=== PATIENT | female | born 1945 | race Caucasian/White ===

== ENCOUNTER 2018-03-20 01:57 | Inpatient (IN) | payer OTHER ==
[~2018-03-20] VITALS: Ht 162.6 cm; Wt 79.8 kg
[2018-03-20] VITALS (8 sets, daily range): BP systolic 86–142; BP diastolic 28–72
--- NOTE | ~2018-03-20 | PATH ---
[facility] [place] [address] PATHOLOGY RPT PROCEDURE Name: SHARLA TITUS Room #: 351-P [facility] IN M.R.#: [id number] Admission: 03/20/18 Date of : 41 Discharge: 03/31/18 Report #: [id number] Path Case #: [id number] [facility] Accession Number: [id number] . 01 Material submitted: . PART A: SACRAL WOUND TISSUE PART B: SACRAL BONE . 01 Clinician provided ICD-10: S31.000A . 01 Clinical history: . Sacral wound. . 02 Diagnosis: A. Sacral wound tissue, incision and drainage: - Marked acute inflammation associated with fibrinoid degeneration, consistent with wound tissue. . B. Bone, sacral bone, incision and drainage/debridement: - Fragments of bone surrounded by marked acute inflammation, consistent with wound tissue. - Reactive and remodeled osseous tissue. - Dense fibrous tissue with marked acute inflammation. (IUV:minerva; 03/27/2018) QMS/03/27/2018 . 02 Electronically signed: . Becky Blankenship MD, Pathologist NPI- [id number] . 01 Gross description: . A. Received in formalin labeled "Sharla Titus, sacral wound tissue" are two portions of yellow-preston irregular soft tissue which measure 4.3 x 2.2 x 0.6 cm and 10.3 x 7.7 x 3.5 cm. The larger portion has a crescent-shaped portion of skin on one aspect, which displays an ulcerated preston-white irregular border. The deep soft tissue is preston-finch and hemorrhagic. Pediatric Genetic Counselor sections are submitted in cassette A1. . B. Received in formalin labeled "Sharla Titus, sacral bone" is a 4.5 x 3.8 x 0.5 cm aggregate of preston-white bone and membranous soft tissue. Pediatric Genetic Counselor sections of the specimen are submitted in cassette B1 following decalcification. [place]/2018[place] SYC/SYC . 02 Pathologist provided ICD-10: S31.000A [place] [id number] PATHOLOGY RPT PROCEDURE Name: SHARLA TITUS Room #: 351-P [facility] IN M.R.#: [id number] Admission: 03/20/18 Date of : 41 Discharge: 03/31/18 Report #: [id number] Path Case #: [id number] . 02 [facility] . [id number], [id number], [id number] Specimen Comment: A courtesy copy of this report has been sent to Specimen Comment: [phone], , , . Specimen Comment: Report sent to ,DR WEBB,DR ALMANZA,DR DAVIS Performed at: [address] [facility] [address], [place], [place] [id number] MD Ruben Houser MD Phone: [phone] Performed at: [address] [facility] [address] [id number] MD Becky Blankenship MD Phone: [phone]
--- NOTE | ~2018-03-20 | EKG ---
[address] [address] ELECTROCARDIOGRAM REPORT Name: JOE TITUS Room #: 351-P ADM IN M.R.#: [id number] Admission: 03/20/18 Attend Phys: Jacob Victoria MD Discharge: Date of : 41 Report #: [id number] THIS REPORT FOR: //name// [facility] ED Test Date: 2018-03-20 Test Time: 02:50:49 Pat Name: JOE TITUS Department: Room: 351 Gender: F Diesel Power Mechanic: paula : 1945 Requested By: Gasper Guzman Order Number: [id number] MD: Davin Naik Measurements Intervals [place] Rate: 106 P: 39 OR: 105 QRS: 51 QRSD: 82 T: 67 QT: 355 QTc: 472 Interpretive Statements Sinus tachycardia Multiple ventricular premature complexes Nonspecific ST segment abnormality No previous ECG available for comparison Electronically Signed On 03-20-2018 8:49:23 CDT by Davin Naik [email or web address] <ELECTRONICALLY SIGNED> By: Davin Naik MD, FACC 03/20/18 0849 0250 0250 Davin Naik MD, FACC /EPI
--- NOTE | ~2018-03-20 | HC ---
[facility] [place] [address] [place] [address] CONSULTATION Name: JOE TITUS Room #: 351-P [facility] IN .R.#: [id number] Admission: 03/20/18 Attend Phys: Jacob Victoria MD Discharge: Date of : 41 Report #: [id number] THIS REPORT FOR: //name// CC: Jacob Gauthier DATE OF SERVICE: 03/20/2018 CHIEF COMPLAINT: Stage 4 sacral pressure ulceration. HISTORY OF PRESENT ILLNESS: This is a 73-year-old white female patient, who is admitted with fever. She has a history of a sacral pressure ulceration. Her previous treatment regimen is unknown. She is not able to provide any information about herself. PAST MEDICAL HISTORY: Positive respiratory failure, requiring tracheostomy. She has a PEG tube. SOCIAL HISTORY: Negative for alcohol or tobacco use. She is currently living in a local assisted. REVIEW OF SYSTEMS: Unobtainable due to the patient's inability to communicate and being nonverbal. FAMILY HISTORY: Unknown. MEDICATIONS: Include citalopram, Pepcid, Glucerna, hydrochlorothiazide, Atrovent, Ativan, Lopressor and Flonase. PHYSICAL EXAMINATION: VITAL SIGNS: At this time, pulse 119, respiratory rate 23, blood pressure 124/45 and temperature 101.5. GENERAL: This is a chronically ill-appearing female patient, who appears to be in no distress. She does make eye contact, but makes no attempt to communicate. HEENT: Head normocephalic. Nose and throat are clear. NECK: Demonstrates tracheostomy in place. LUNGS: Diminished. HEART: Regular rhythm. ABDOMEN: Soft. PEG tube is in place. GENITOURINARY: Sacral region demonstrates a stage 4 pressure ulceration with moderate eschar and exposed loose bone in the base. EXTREMITIES: Lower extremities are without contracture. No evidence of any obvious ulcerations elsewhere on her extremities. NEUROLOGIC: The patient appears to have symmetrical spontaneous movement. She does not readily follow command. [address] [address] CONSULTATION Name: JOE TITUS Room #: 351-P [facility] IN M.R.#: [id number] Admission: 03/20/18 Attend Phys: Jacob Victoria MD Discharge: Date of : 43 Report #: [id number] LABORATORY DATA: Includes sodium 133, potassium 3.4, chloride 99, CO2 of 30, BUN 25, creatinine 0.6 and glucose 210. Total bilirubin 0.5, calcium 9.1, alkaline phosphatase 112, SGPT 29, total protein 7.1, albumin 2.1. White blood cell count 19.2, hemoglobin of 9.5, hematocrit of 29.8 and platelet count 343,000. Urinalysis with many white blood cells, red blood cells and bacteria. CLINICAL IMPRESSION: 1. Stage 4 sacral pressure ulceration with clinical evidence of osteomyelitis. 2. Respiratory failure, requiring tracheostomy. 3. Moderate protein-calorie malnutrition. The patient has a PEG tube in place. RECOMMENDATIONS: At this point in time, the patient is not able to answer any specific questions. There have been attempts made to contact family, with no success. She will require a surgical debridement including bony debridement of the sacral region. She would likely benefit from negative pressure wound therapy following debridement. She is having significant diarrhea that is contaminating the wound. She has a PEG tube in place, which I think will be beneficial for maintaining or improving her nutrition, but I think she would also greatly benefit from a diverting colostomy. She will need low air loss mattress Prevalon boots to the lower extremities for pressure prophylaxis. Recommend every 2 hour turning and repositioning. Continue current medications. I appreciate being asked to see her in consultation. <ELECTRONICALLY SIGNED> By: Vlad Bellamy MD 03/22/18 0750 2056 1416 Vlad Bellamy MD /nt
--- NOTE | ~2018-03-20 | O ---
[facility] [address] [place] [address] OPERATIVE REPORT Name: JOE TITUS Room #: 351-P [facility] IN M.R.#: [id number] Admission: 03/20/18 Attend Phys: Jacob Victoria MD Discharge: Date of : 43 Report #: [id number] THIS REPORT FOR: //name// CC: Jacob Gauthier MD DATE OF SERVICE: 03/24/2018 SURGEON: Bruno Castelan MD FURNITURE FINISHER: RUI Jenkins PREOPERATIVE DIAGNOSES: 1. Large, unstageable sacrococcygeal decubitus ulcer. 2. Malnutrition. 3. Hypertension. 4. Respiratory failure with a tracheostomy in place. 5. Depression/Anxiety. POSTOPERATIVE DIAGNOSES: 1. Large, stage 4 sacrococcygeal decubitus ulcer. 2. Malnutrition. 3. Hypertension. 4. Respiratory failure with a tracheostomy in place. 5. Depression/Anxiety. PROCEDURE: 1. Diverting loop colostomy. 2. Excisional and ultrasonic debridement of stage 4 sacrococcygeal decubitus ulcer including skin, subcutaneous tissue, muscle and bone (starting area 35 cm2; ending area 204 cm2). ANESTHESIA: General endotracheal anesthesia and local anesthetic. ESTIMATED BLOOD LOSS: 50 mL. SPECIMEN: Sacral tissue (skin, subcutaneous tissue, and muscle/fascia), sacral bone. COMPLICATIONS: None appreciated. INDICATIONS FOR PROCEDURE: This is a 73-year-old female patient from [facility] who was seen in the [place] with a sacral decubitus ulcer and fever. The patient is nonverbal due to respiratory failure [facility] [address] [place] [address] OPERATIVE REPORT Name: JOE TITUS Room #: 351-P ADM IN M.R.#: [id number] Admission: 03/20/18 Attend Phys: Jacob Victoria MD Discharge: Date of : 43 Report #: [id number] with a tracheostomy in place. She has been unable to provide information. She had a temperature of 101 degrees with a large sacral wound that has shown worsening. She had significant leukocytosis and a urinary tract infection on urinalysis. On exam, she had obvious necrotic tissue with malodorous drainage from the decubitus ulcer. She already has a PEG tube in place. Despite this, she is malnourished. She presents now for colostomy to divert the fecal stream and optimize the healing environment as well as excisional debridement of her sacrococcygeal decubitus ulcer. OPERATIVE FINDINGS: The dimensions of the wound were 7 cm long x 5 cm wide initially. Due to the extensive undermining and after adequate excision of tissue down to healthy, viable tissue, the wound dimensions were 12 cm long x 17 cm wide. There was obvious bony involvement and cultures were taken from the more superficial tissue as well as from the bone marrow that appeared to represent osteomyelitis and make this is a stage 4 sacrococcygeal decubitus ulcer. The patient's colon was felt to be redundant. The only colon that was able to be pulled up through the opening in the abdomen was felt to represent sigmoid colon, as no greater omentum was attached to the colon. A loop-type colostomy was created and both lumens were palpably patent beyond the fascial level. The blood supply to the colon was good with viability after creation of the stoma. DESCRIPTION OF PROCEDURE IN DETAIL: After the risks, benefits and expectations of the operation were discussed with the patient's durable power of civil rights attorney, informed consent was obtained. The patient was identified in the preoperative holding area. She has been receiving scheduled IV antibiotics. She was taken to the operating room and she was placed in the supine position. The patient was then given IV sedation and the ventilator was connected to her indwelling tracheostomy. She was then placed on the operating table in the left lateral decubitus position with the right side up. The patient's back and sacral area were prepped and draped in the standard sterile fashion. A time-out was performed to identify the correct patient and procedure. The planned incision was drawn out after digitally examining the wound. There was obvious bony protrusion with jagged edges present and the wound undermined significantly laterally on each side. After marking out the area to be excised, local anesthetic was infiltrated into the skin and subcutaneous tissue. A sharp #10 blade scalpel was used to make an incision through the skin and subcutaneous tissue. Electrocautery was used to dissect through the subcutaneous tissue down to healthy, viable tissue that was slightly bleeding/oozing with no acute hemorrhage. Bleeding points were made hemostatic with electrocautery while doing so. The excised necrotic tissue was then removed to be sent for specimen. Cultures were taken from the superficial tissue. The outer table of the bone and marrow were then debrided with the rongeur. The outside of the bone marrow [address] [address] OPERATIVE REPORT Name: TACHOJOE Room #: 351-P [facility] IN M.R.#: [id number] Admission: 03/20/18 Attend Phys: Jacob Victoria MD Discharge: Date of : 41 Report #: [id number] appeared to be infected and cultures were taken from the bone to be sent for aerobes, anaerobes and fungus. The outer table of bone and marrow was then smoothed out with a rasp to help eliminate bony prominences that could cause further development of pressure ulcers. Bleeding points were again made hemostatic with electrocautery. The wound was then ultrasonically debrided with the CeutiCareonix debridement device to help decrease the bacterial load and cavitate the nonviable cells. The device was used to apply ultrasonic debridement to the entire surface area of the wound. Bleeding points were again made hemostatic with electrocautery. After ensuring final hemostasis, the wound was packed with a wet to dry normal saline, Kerlix roll, then covered with 4 x 4s, ABDs and tape. The patient was then returned to the supine position. The patient's abdomen was then prepped and draped in the standard sterile fashion. The planned area of the colostomy was chosen. The skin was prepped and draped in the standard sterile fashion prior to doing so. A sharp #10 blade scalpel was then used to make a circular incision in the right mid abdomen where the transverse colon was felt to be present. Electrocautery was used to dissect through subcutaneous tissue down to the right anterior rectus abdominis fascia. The fascia was opened longitudinally. The underlying rectus abdominis muscle was then identified. It was split longitudinally and the posterior fascia was grasped between hemostats. A small opening was created. The opening was then widened in a cruciate fashion. Omental fat was identified. I was able to bring the stomach and duodenum to the incision; however, I was unable to definitively identify transverse colon. A loop of colon was grasped and this was identified by the tenia; however, no omentum was attached to this. This was felt to represent a redundant sigmoid colon. A search for the transverse colon was undertaken further; however, this was not fruitful. The loop of sigmoid colon was delivered through the incision. A mesenteric window was created with electrocautery. The colostomy veronique was then advanced through the window and sutured to the skin with interrupted 2-0 nylon sutures x 4. The colon was then opened longitudinally, along the antimesenteric surface. The colostomy was then matured with interrupted 2-0 Chantel type sutures on either side of the colostomy veronique as well as at the 3 o'clock and 9 o'clock positions. Short runs of the 2-0 Vicryl suture were then used to create the maturation of the stoma. The stoma was palpably patent beyond the fascial level for both afferent and efferent loops. The colostomy appliance was then placed. The patient tolerated the procedures well. The patient was then awakened and taken to the recovery room in stable condition connected to the ventilator by her tracheostomy, which will be weaned off. <ELECTRONICALLY SIGNED> By: Bruno Castelan MD, FACS 03/29/18 1313 1331 1630 Bruno Castelan MD, FACS /nt
--- NOTE | ~2018-03-20 | HC ---
[facility] [place] [address] [place] [address] CONSULTATION Name: JOE TITUS Room #: 351-P [facility] IN M.R.#: [id number] Admission: 03/20/18 Attend Phys: Jacob Victoria MD Discharge: Date of : 41 Report #: [id number] THIS REPORT FOR: //name// CC: Jacob Gauthier DATE OF SERVICE: 03/23/2018 REASON FOR CONSULTATION: Gram-negative bacteremia in the setting of fever and leukocytosis. HISTORY OF PRESENT ILLNESS: The patient is a 73-year-old, transferred from [facility] with fever and progressive sacral decubitus. She was unable to give me any details. She has a chronic tracheostomy. She had previous stroke with right hemiparesis. No increased tracheal secretions. No change in her oxygen requirements. She has had a history of a chronic sacral ulcer. She has a PEG tube. She has a chronic indwelling Limon catheter. She was placed on IV antibiotic therapy. Her fever has resolved, although she continues to have leukocytosis and now has developed diarrhea. REVIEW OF SYSTEMS: A 10-point review of systems is unable to be completed for the patient was unable to communicate with me to give me a reasonable history. ALLERGIES: None known. MEDICATIONS: As noted on her MAR, which were reviewed including Zosyn and vancomycin. PAST MEDICAL HISTORY: Hypertension, anxiety, dysphagia, depression, tracheostomy, PEG tube, chronic indwelling Limon catheter, stroke. FAMILY HISTORY: Noncontributory. SOCIAL HISTORY: Nonsmoker, no significant alcohol intake. prison resident. PHYSICAL EXAMINATION: GENERAL: She was lying in bed. Head elevated about 30 degrees. No acute distress. She is awake, but not conversant. VITAL SIGNS: She was afebrile with stable vital signs. HEENT: Without evidence of mucositis. No conjunctivitis or scleral icterus. NECK: Tracheostomy was midline. No significant peritracheal drainage or erythema. LUNGS: Clear. No adventitious sounds. HEART: Regular, without murmur, gallop or rub. ABDOMEN: Soft, nontender. PEG site was unremarkable. No [facility] or [address] [address] CONSULTATION Name: JOE TITUS Room #: 351-P [facility] IN M.R.#: [id number] Admission: 03/20/18 Attend Phys: Jacob Victoria MD Discharge: Date of : 43 Report #: [id number] hepatosplenomegaly. GENITOURINARY: External genitalia unremarkable with no ulcerations and has an indwelling Limon catheter. She was incontinent of liquid stool in the bed. Unable to evaluate her sacral wound. I did review the evaluation of Wound Care service and General Surgery. There was a large sacral decubitus with necrotic tissue with drainage. No peripheral adenopathy. SKIN: Otherwise, unremarkable. PSYCHIATRIC: Mood is unremarkable with no anxiety noted. NEUROLOGIC: She had right hemiparesis. She had increased muscle tone. LABORATORY STUDIES: Sodium 151, potassium 3.3, bicarbonate 22, creatinine 0.7. Liver function tests normal. Albumin of 1.8. Hemoglobin 8.5, WBC 14.2, platelet count 306,000. Differential yesterday, 83% segs, 9% lymphocytes, vancomycin trough previously was 21. Dose has been adjusted from this. MRSA screen is pending. C. difficile PCR pending. Urinalysis: Many wbc's, many bacteria. Urine culture with gram-negative bacilli obtain on 03/20/2018. Identification is still pending. Blood culture from same date, gram-negative bacilli, identification pending. This was 1 of [address] scan of the abdomen and pelvis is pending. Chest x-ray on admission, mild cardiomegaly with vascular congestion. Patchy bilateral opacities, possible pneumonitis. IMPRESSION: 1. A 73-year-old with gram-negative bacteremia. She has ongoing leukocytosis as well. Source would include urinary tract most likely. She has a chronic indwelling Limon catheter. 2. Sacral decubitus, extensive. Planning surgical debridement tomorrow. It is still possible her bacteremia could be from this. I am suspecting possible osteomyelitis as a further complication here given the duration of her symptoms. 3. Respiratory failure with chronic tracheostomy. 4. Diarrhea. Must be concerned about Clostridium difficile colitis in this setting. 5. Encephalopathy. Unclear if this is related to her previous stroke or exacerbated by her current infection. This will need to be followed. RECOMMENDATION: We will continue IV antibiotic therapy with Zosyn. So far no evidence of MRSA infection. We will await culture results to tailor her antibiotics. Await surgical evaluation following CT scan to determine the extent of debridement to be undertaken. Need to evaluate her CAT scan and ensure there is no abscess in the posterior pelvis. <ELECTRONICALLY SIGNED> By: Eric Cabrales MD 03/24/18 0851 0929 2328 Eric Cabrales MD /nt
--- NOTE | ~2018-03-20 | HC ---
[facility] [place] [address] CONSULTATION Name: JOE TITUS Room #: 351-[facility] IN M.R.#: [id number] Admission: 03/20/18 Attend Phys: Jacob Victoria MD Discharge: Date of : 41 Report #: [id number] THIS REPORT FOR: //name// CC: Jacob Gauthier Pulmonary Consultation PRIMARY CARE PHYSICIAN: Dr. June. REASON FOR CONSULTATION: Hypoxia and pneumonia. HISTORY OF PRESENT ILLNESS: The patient is a 73-year-old white female who was admitted on 03/20 with febrile illness. She was found to have infection with sepsis. She also has a large decubitus ulcer. Earlier today, she underwent surgery for decubitus ulcer. She underwent diverting loop colostomy, excisional and ultrasound debridement of stage IV sacrococcygeal decubitus ulcer. On admission, chest x-ray and showed mild right upper lobe infiltrate. Chest x-ray earlier today shows increasing right upper lobe infiltrates along with left lower lobe infiltrates. Her hypoxia is also worsened. Currently, she is sedated, in no distress. PAST MEDICAL HISTORY: As mentioned above. She has a history of CVA resulting in chronic tracheostomy, right-sided hemiparesis, and progressive sacral decubitus. She has a history of hypertension, anxiety disorder, dysphagia, depression, status post PEG tube placement. ALLERGIES: None to medications. MEDICATIONS: Reviewed in the MAR. FAMILY HISTORY: Noncontributory. SOCIAL HISTORY: She is a resident of [facility]. Otherwise, no history of tobacco or alcohol use. REVIEW OF SYSTEMS: Deferred, as the patient is sedated preoperatively. PHYSICAL EXAMINATION: VITAL SIGNS: Temperature is 97.6 degrees Fahrenheit, pulse is 80, respiratory rate is 24, blood pressure 127/77 mmHg, saturation 100%. HEENT: Normocephalic, atraumatic. NECK: Supple, without lymphadenopathy or thyromegaly. CHEST: Air movements are fair. Coarse breath sounds are heard bilaterally. CARDIOVASCULAR: Heart sounds are distant. No obvious murmurs or gallop. [facility] [address] [place] [address] CONSULTATION Name: JOE TITUS Room #: 351-P [facility] IN M.R.#: [id number] Admission: 03/20/18 Attend Phys: Jacob Victoria MD Discharge: Date of : 41 Report #: [id number] Pulses are 2+/4+ bilaterally. ABDOMEN: Soft, nontender, no organomegaly or masses felt. GENITOURINARY: Deferred. RECTAL: Deferred. EXTREMITIES: There is no cyanosis or clubbing, 1+ bilateral pretibial edema. NEUROLOGIC: Deferred, as the patient is sedated from postoperative anesthesia. LABORATORY DATA: Portable chest x-ray today shows increasing and right upper lobe infiltrates, and mild left lower lobe infiltrates are seen. Tracheostomy is in appropriate position. CT abdomen and pelvis performed in the preliminarily shows bibasilar lower lobe atelectasis, moderate bilateral pleural effusion, numerous gallstones, calculus within the calices of the left kidney, old right superior and inferior pubic rami fracture. Sodium 152, potassium 3.1, chloride 118, CO2 24, BUN is 18, creatinine 0.8. Liver enzymes are grossly unremarkable. WBC 15,200, hemoglobin 9.0, platelets are normal. Albumin 1.8. IMPRESSION: 1. Bilateral infiltrates in this 73-year-old white female. Right upper lobe infiltrates appear to have worsened. Nosocomial pneumonia is felt to be likely, possible component of aspiration. 2. Postoperative following surgery as mentioned above. 3. Severe sepsis due to pneumonia, urinary tract infection, left hydronephrosis, bacteremia. 4. Severe stage IV decubitus ulcer as mentioned above. 5. Acute on chronic respiratory failure due to above including pneumonia. 6. History of cerebrovascular accident, chronic tracheostomy, progressive debility and weakness. 7. Hyponatremia, may need half normal saline or D5 water. Defer to the primary team. 8. Anemia of chronic disease. 9. Dysphagia, status post PEG tube placement. RECOMMENDATIONS: We will monitor closely. If hypoxia worsens, she may need to be placed back on ventilator temporarily. We will defer antibiotics to infectious disease. Wean O2 for saturation 90%. DVT and GI prophylaxis will be recommended. Overall outlook appears to be poor given severe underlying comorbid conditions. <ELECTRONICALLY SIGNED> By: Sarabjit Park MD 03/25/18 1518 [id number] Sarabjit Park MD /nt
[2018-03-20 02:24] LABS: ABSOLUTE NEUTROPHILS 15.4 thou/uL (1.4-8.2); BASOPHILS 0.7 % (0.0-2.0); EOSINOPHILS 0.4 % (0.0-3.0); HEMATOCRIT 29.8 % (37.0-47.0); HEMOGLOBIN 9.5 gm/dL (12.0-15.0); LYMPHOCYTES 10.7 % (24.0-44.0); MCH 26.2 pg (26.0-34.0); MCHC 31.7 g/dL (28.0-37.0); MCV 82.7 fL (80.0-100.0); MONOCYTES 7.7 % (1.0-8.0); PLATELET COUNT 343 thou/uL (150-400); POLYS 80.5 % (36.0-66.0); RDW 16.1 % (10.5-14.5); WBC 19.2 thou/uL (4.0-11.0)
[2018-03-20 02:33] LABS: CALCIUM 9.1 mg/dL (8.5-10.1); CREATININE 0.6 mg/dL (0.6-1.0); POTASSIUM 3.4 mmol/L (3.5-5.1)
[2018-03-20 02:39] LABS: ALBUMIN 2.1 g/dL (3.4-5.0); TOTAL BILIRUBIN 0.5 mg/dL (<0.1-1.0); TOTAL PROTEIN 7.1 g/dL (6.4-8.2)
[2018-03-20] MEDS ORDERED: HYOSCYAMINE0.125 M1 (02:50)
[2018-03-20] MEDS ORDERED: LEXAPRO20 MG (02:54)
[2018-03-20] MEDS ORDERED: DIOCTO50 MG/5 ML (02:54)
[2018-03-20] MEDS ORDERED: PEPCID20 MG (02:55)
[2018-03-20] MEDS ORDERED: GLUCERNA237 M1 (02:56)
[2018-03-20] MEDS ORDERED: HYDROCHLOROTHIA25 M2 (02:56)
[2018-03-20] MEDS ORDERED: ATIVAN0.5 MG (02:57)
[2018-03-20] MEDS ORDERED: ATROVENT HFA14 GM (02:57)
[2018-03-20] MEDS ORDERED: LOPRESSOR50 (02:58)
[2018-03-20] MEDS ORDERED: RISAMINE OINTM113 GM (02:58)
[2018-03-20] MEDS ORDERED: FLONASE 0.05%50 MCG (02:59)
[2018-03-20 03:05] LABS: URINE BILIRUBIN NEGATIVE (Negative); URINE BLOOD 3+ (Negative); URINE CLARITY SL CLOUDY; URINE COLOR YELLOW; URINE GLUCOSE-RANDOM* NEGATIVE (Negative); URINE KETONES NEGATIVE (Negative); URINE LEUKOCYTES-REFLEX 3+ (Negative); URINE NITRITE-REFLEX POSITIVE (Negative); URINE PROTEIN (DIPSTICK) TRACE (Negative); URINE UROBILINOGEN 0.2 E.U./dl (0.2-1.0)
[2018-03-20 03:19] LABS: CASTS None Seen /LPF (None Seen); MUCUS None Seen strn/LPF (None Seen); SQUAMOUS None Seen /LPF (0-3); URINE WBC-REFLEX >25 Many /HPF (0-5)
[2018-03-20 03:20] LABS: BACTERIA-REFLEX >30 Many /HPF (None Seen); COARSE GRANULAR CASTS 0-3 Few /LPF (None Seen); CRYSTALS None Seen /LPF (None Seen); URINE RBC >20 Many /HPF (0-2); WBC CLUMPS Few (None Seen)
[2018-03-21] VITALS (7 sets, daily range): BP systolic 85–102; BP diastolic 42–62
[2018-03-21 04:38] LABS: CREATININE 0.8 mg/dL (0.6-1.0)
[2018-03-21 04:38] LABS: HEMATOCRIT 26.8 % (37.0-47.0); HEMOGLOBIN 8.3 gm/dL (12.0-15.0); MCH 26.4 pg (26.0-34.0); MCV 85.1 fL (80.0-100.0); PLATELET COUNT 316 thou/uL (150-400); RBC 3.15 mil/uL (4.20-5.00); RDW 16.6 % (10.5-14.5); WBC 33.8 thou/uL (4.0-11.0)
[2018-03-21 04:46] LABS: POTASSIUM 2.5 mmol/L (3.5-5.1)
[2018-03-21 05:39] LABS: ABSOLUTE NEUTROPHILS 31.4 thou/uL (1.4-8.2); ANISOCYTOSIS 1+
[2018-03-22] VITALS (7 sets, daily range): BP systolic 107–124; BP diastolic 57–71
[2018-03-22 05:46] LABS: ABSOLUTE NEUTROPHILS 12.5 thou/uL (1.4-8.2); BASOPHILS 0.3 % (0.0-2.0); EOSINOPHILS 0.6 % (0.0-3.0); HEMATOCRIT 24.6 % (37.0-47.0); HEMOGLOBIN 7.7 gm/dL (12.0-15.0); LYMPHOCYTES 9.9 % (24.0-44.0); MCH 26.7 pg (26.0-34.0); MCHC 31.4 g/dL (28.0-37.0); MCV 85.2 fL (80.0-100.0); MONOCYTES 5.8 % (1.0-8.0); PLATELET COUNT 274 thou/uL (150-400); POLYS 83.4 % (36.0-66.0); RBC 2.89 mil/uL (4.20-5.00); RDW 16.5 % (10.5-14.5)
[2018-03-22 06:02] LABS: CALCIUM 8.5 mg/dL (8.5-10.1); CREATININE 0.8 mg/dL (0.6-1.0); POTASSIUM 3.1 mmol/L (3.5-5.1)
[2018-03-23 03:43] VITALS: BP 132/73
[2018-03-23 07:09] VITALS: BP 149/78
[2018-03-23 08:23] LABS: HEMATOCRIT 27.1 % (37.0-47.0); HEMOGLOBIN 8.5 gm/dL (12.0-15.0); MCH 27.1 pg (26.0-34.0); MCHC 31.4 g/dL (28.0-37.0); MCV 86.3 fL (80.0-100.0); RBC 3.14 mil/uL (4.20-5.00); RDW 16.3 % (10.5-14.5); WBC 14.2 thou/uL (4.0-11.0)
[2018-03-23 08:39] LABS: ALBUMIN 1.8 g/dL (3.4-5.0); CALCIUM 8.3 mg/dL (8.5-10.1); CREATININE 0.7 mg/dL (0.6-1.0); MAGNESIUM 2.1 mg/dL (1.8-2.4); POTASSIUM 3.3 mmol/L (3.5-5.1); TOTAL BILIRUBIN 0.2 mg/dL (<0.1-1.0); TOTAL PROTEIN 5.5 g/dL (6.4-8.2)
[2018-03-23 11:32] VITALS: BP 155/83
[2018-03-23 15:53] LABS: % SATURATION 20 % (20-39); IRON 25 ug/dL (50-170); TIBC 128 ug/dL (250-450)
[2018-03-23 16:38] VITALS: BP 158/83
[2018-03-23 16:45] LABS: FOLIC ACID 20.2 ng/mL (8.6-58.9)
[2018-03-23 19:50] VITALS: BP 149/68
[2018-03-24] VITALS (8 sets, daily range): BP systolic 110–158; BP diastolic 56–85
[2018-03-24 05:23] LABS: HEMATOCRIT 30.5 % (37.0-47.0); HEMOGLOBIN 9.1 gm/dL (12.0-15.0); MCH 26.6 pg (26.0-34.0); MCHC 29.9 g/dL (28.0-37.0); MCV 88.8 fL (80.0-100.0); RBC 3.43 mil/uL (4.20-5.00); RDW 16.8 % (10.5-14.5); WBC 15.2 thou/uL (4.0-11.0)
[2018-03-24 05:30] LABS: CALCIUM 9.2 mg/dL (8.5-10.1); CREATININE 0.8 mg/dL (0.6-1.0); MAGNESIUM 1.8 mg/dL (1.8-2.4)
[2018-03-24 11:02] LABS: INR 1.1; PROTIME 11.2 Seconds (9.3-11.4)
[2018-03-24 14:56] LABS: CALCIUM 8.5 mg/dL (8.5-10.1); CREATININE 0.8 mg/dL (0.6-1.0); POTASSIUM 3.1 mmol/L (3.5-5.1)
[2018-03-25] VITALS: BP 128/69
[2018-03-25 04:05] VITALS: BP 134/79
[2018-03-25 06:07] LABS: HEMATOCRIT 24.5 % (37.0-47.0); HEMOGLOBIN 7.8 gm/dL (12.0-15.0); MCH 27.3 pg (26.0-34.0); MCHC 31.9 g/dL (28.0-37.0); MCV 85.5 fL (80.0-100.0); RBC 2.86 mil/uL (4.20-5.00); RDW 16.6 % (10.5-14.5); WBC 14.4 thou/uL (4.0-11.0)
[2018-03-25 06:27] LABS: CALCIUM 8.5 mg/dL (8.5-10.1); CREATININE 0.9 mg/dL (0.6-1.0); MAGNESIUM 1.7 mg/dL (1.8-2.4); POTASSIUM 3.2 mmol/L (3.5-5.1)
[2018-03-25 07:40] VITALS: BP 157/57
[2018-03-25 11:47] VITALS: BP 113/58
[2018-03-25 15:44] VITALS: BP 112/56
[2018-03-25 19:20] VITALS: BP 118/62
[2018-03-25 19:29] LABS: MAGNESIUM 1.7 mg/dL (1.8-2.4); POTASSIUM 3.7 mmol/L (3.5-5.1)
[2018-03-26 03:25] VITALS: BP 133/71
[2018-03-26 08:46] VITALS: BP 130/61
[2018-03-26 09:30] LABS: HEMATOCRIT 24.7 % (37.0-47.0); HEMOGLOBIN 7.8 gm/dL (12.0-15.0); MCHC 31.7 g/dL (28.0-37.0); MCV 85.1 fL (80.0-100.0); RBC 2.91 mil/uL (4.20-5.00); WBC 14.7 thou/uL (4.0-11.0)
[2018-03-26 09:43] LABS: CALCIUM 9.4 mg/dL (8.5-10.1); CREATININE 0.9 mg/dL (0.6-1.0); MAGNESIUM 1.8 mg/dL (1.8-2.4); POTASSIUM 3.4 mmol/L (3.5-5.1)
[2018-03-26 12:16] VITALS: BP 111/53
[2018-03-26 17:06] VITALS: BP 115/59
[2018-03-26 19:58] VITALS: BP 151/71
[2018-03-27 04:25] VITALS: BP 150/77
[2018-03-27 05:21] LABS: HEMATOCRIT 25.3 % (37.0-47.0); HEMOGLOBIN 7.9 gm/dL (12.0-15.0); MCH 26.8 pg (26.0-34.0); MCHC 31.4 g/dL (28.0-37.0); MCV 85.3 fL (80.0-100.0); RBC 2.96 mil/uL (4.20-5.00); RDW 16.3 % (10.5-14.5)
[2018-03-27 05:32] LABS: CALCIUM 8.7 mg/dL (8.5-10.1); CREATININE 0.8 mg/dL (0.6-1.0); MAGNESIUM 1.8 mg/dL (1.8-2.4); POTASSIUM 3.3 mmol/L (3.5-5.1)
[2018-03-27 08:09] VITALS: BP 139/73
[2018-03-27 12:08] VITALS: BP 118/53
[2018-03-27 16:19] VITALS: BP 142/78
[2018-03-27 21:02] VITALS: BP 125/69
[2018-03-28] VITALS (8 sets, daily range): BP systolic 102–154; BP diastolic 54–76
[2018-03-28 04:23] LABS: HEMATOCRIT 24.6 % (37.0-47.0); HEMOGLOBIN 7.8 gm/dL (12.0-15.0); MCH 26.6 pg (26.0-34.0); MCHC 31.6 g/dL (28.0-37.0); MCV 84.2 fL (80.0-100.0); RBC 2.92 mil/uL (4.20-5.00); WBC 11.7 thou/uL (4.0-11.0)
[2018-03-28 04:39] LABS: CALCIUM 8.5 mg/dL (8.5-10.1); CREATININE 0.7 mg/dL (0.6-1.0); POTASSIUM 3.6 mmol/L (3.5-5.1)
[2018-03-29 04:50] VITALS: BP 108/51
[2018-03-29 06:35] LABS: CREATININE 0.9 mg/dL (0.6-1.0)
[2018-03-29 08:00] VITALS: BP 132/63
[2018-03-29 11:37] VITALS: BP 104/45
[2018-03-29 17:45] VITALS: BP 101/47
[2018-03-29 19:50] VITALS: BP 109/58
[2018-03-30 05:00] VITALS: BP 138/57
[2018-03-30 08:11] VITALS: BP 144/82
[2018-03-30 11:50] VITALS: BP 125/61
[2018-03-30 15:40] VITALS: BP 130/60
[2018-03-30 20:20] VITALS: BP 109/54
[2018-03-31 04:10] VITALS: BP 113/63
[2018-03-31 08:39] VITALS: BP 116/47
[2018-03-31 11:12] VITALS: BP 113/52
[2018-03-31] MEDS ORDERED: HYDROCODONE-ACE15 ML PER TUBE (11:56)
[2018-03-31] MEDS ORDERED: FUROSEMIDE20 MG/2 ML PO (11:56)
[2018-03-31] MEDS ORDERED: BACTRIM DS TAB1 EACH PO (11:56)
[2018-03-31] MEDS ORDERED: FLAGYL500 MG PO (11:56)
[2018-03-31] MEDS ORDERED: FIRVANQ50 MG/1 ML PER TUBE (11:56)
== END 2018-03-31 18:32 | DRG 853 ==
LOC: ER 01:57 → EROBS 03:09 → 3W 03:09
PROVIDERS: Emergency Medicine; Hospitalist; Internal Medicine; Radiology Vascular & Interventional Radiology; Surgery
PROC: 0D1L0Z4 Bypass Transverse Colon to Cutaneous, Open Approach (ICD-10-PCS; principal; 2018-03-24)
PROC: 0QB10ZZ Excision of Sacrum, Open Approach (ICD-10-PCS; principal; 2018-03-24)
PROC: 0T913ZZ Drainage of Left Kidney, Percutaneous Approach (ICD-10-PCS; 2018-03-28)
DX: A41.89 Other specified sepsis (principal); L89.154 Pressure ulcer of sacral region, stage 4; E43 Unspecified severe protein-calorie malnutrition; J69.0 Pneumonitis due to inhalation of food and vomit; J96.21 Acute and chronic respiratory failure with hypoxia; M46.28 Osteomyelitis of vertebra, sacral and sacrococcygeal region; G93.40 Encephalopathy, unspecified; E87.1 Hypo-osmolality and hyponatremia; N13.6 Pyonephrosis; E87.0 Hyperosmolality and hypernatremia; A04.72 Enterocolitis due to Clostridium difficile, not specified as recurrent; S31.000A Unspecified open wound of lower back and pelvis without penetration into retroperitoneum, initial encounter; F41.9 Anxiety disorder, unspecified; F32.9 Major depressive disorder, single episode, unspecified; Y95 Nosocomial condition; R65.20 Severe sepsis without septic shock; D63.8 Anemia in other chronic diseases classified elsewhere; R13.10 Dysphagia, unspecified; E87.6 Hypokalemia; R73.9 Hyperglycemia, unspecified; I95.9 Hypotension, unspecified; K31.84 Gastroparesis; K80.80 Other cholelithiasis without obstruction; B96.89 Other specified bacterial agents as the cause of diseases classified elsewhere; I11.0 Hypertensive heart disease with heart failure; B96.1 Klebsiella pneumoniae [K. pneumoniae] as the cause of diseases classified elsewhere; I50.9 Heart failure, unspecified; Z86.73 Personal history of transient ischemic attack (TIA), and cerebral infarction without residual deficits; Z79.899 Other long term (current) drug therapy; Z93.0 Tracheostomy status; Z93.1 Gastrostomy status; Z23 Encounter for immunization; X58.XXXA Exposure to other specified factors, initial encounter; Y93.89 Activity, other specified; Y92.89 Other specified places as the place of occurrence of the external cause; Y99.8 Other external cause status
CPT/HCPCS: 10879; 50010; 50101; 50386; 50403; 56524; 56525; 57119; 57120; 62110; 62900; 70005

== ENCOUNTER 2018-04-24 20:29 | Inpatient (IN) | payer OTHER ==
[~2018-04-24] VITALS: Ht 162.6 cm; Wt 61.2 kg
--- NOTE | ~2018-04-24 | HC ---
[facility] [address] [address] CONSULTATION Name: JOE TITUS Room #: 361-P [facility] IN M.R.#: [id number] Admission: 04/24/18 Attend Phys: Eunice Lane Discharge: 04/28/18 Date of : 41 Report #: [id number] THIS REPORT FOR: //name// CC: Eunice Gauthier DATE OF SERVICE: 04/25/2018 CHIEF COMPLAINT: Stage 4 sacral pressure ulcer. HISTORY OF PRESENT ILLNESS: This is a 73-year-old female patient with whom I am familiar from previous hospitalization. She is a resident of [facility]. She has been not acting normally and was having difficulty and was admitted to the hospital. She has a stage 4 pressure ulceration to her sacrum. She has had previous diverting colostomy. She has chronic respiratory failure with tracheostomy and nephrostomy tube as well. I have been asked to see her with regard to wound care. The patient can provide no information about herself. PAST MEDICAL HISTORY: Includes sacral pressure ulceration, tracheostomy, PEG tube, chronic Limon catheter, hypertension, anxiety, type 2 diabetes mellitus, acute on chronic respiratory failure and paraplegia. FAMILY HISTORY: Unknown. SOCIAL HISTORY: The patient is reportedly negative for alcohol or tobacco use. REVIEW OF SYSTEMS: Unobtainable due to the patient's inability to communicate. MEDICATIONS: Include docusate sodium, hyoscyamine, escitalopram, famotidine, hydrochlorothiazide, Atrovent, metoprolol, fluticasone, furosemide, lorazepam. ALLERGIES: NONE. PHYSICAL EXAMINATION: VITAL SIGNS: At this time include respiratory rate of 18, pulse rate 89, temperature 98.3, blood pressure 93/54. GENERAL: This is a chronically ill-appearing female patient who appears to be in no distress. HEENT: Head normocephalic. Nose and throat clear. NECK: Demonstrates tracheostomy. LUNGS: Diminished. HEART: Regular. ABDOMEN: Soft, bowel sounds present. The patient has urostomy on the left flank area. She has PEG tube in place. Colostomy appears to be functioning. ABDOMEN: Soft, nontender. Sacral region demonstrates stage 4 sacral pressure [facility] [address] [place] [address] CONSULTATION Name: JOE TITUS Room #: 361-P [facility] IN .R.#: [id number] Admission: 04/24/18 Attend Phys: Eunice Lane Discharge: 04/28/18 Date of : 43 Report #: [id number] ulceration that is clean, healthy, granulating. There is still some exposed bone. There is no evidence of infection. NEUROLOGIC: The patient did have her eyes open. She appears to make no spontaneous movement in bed. LABORATORY DATA: White blood cell count 23.5, hemoglobin 10.9, hematocrit 34.6. Sodium 140, potassium 3.8, chloride 109, CO2 of 28, BUN 58, creatinine 0.9, total protein 8.6, albumin 2.5. CLINICAL IMPRESSION: 1. Stage 4 sacral pressure ulceration status post surgical debridement. 2. Status post diverting colostomy and PEG tube placement. 3. Chronic respiratory failure requiring tracheostomy. 4. Diabetes. 5. Moderate protein-calorie malnutrition, albumin 2.5. RECOMMENDATIONS: At this point in time, the patient will be placed in low air loss mattress, q. 2 hour turning and repositioning. She will need ongoing aggressive nutritional support. We will recommend a wound VAC for her sacral pressure ulceration. Prevalon boots for pressure prophylaxis, both lower extremities. I appreciate being asked to see her in consultation. <ELECTRONICALLY SIGNED> By: Vlad Bellamy MD 05/01/18 [id number] Vlad Bellamy MD /nt
--- NOTE | ~2018-04-24 | HC ---
[facility] [place] [address] CONSULTATION Name: JOE TITUS Room #: 361-P [facility] IN M.R.#: [id number] Admission: 04/24/18 Attend Phys: Eunice Lane Discharge: Date of : 43 Report #: [id number] THIS REPORT FOR: //name// CC: Eunice Gauthier DATE OF SERVICE: 04/25/2018 INFECTIOUS DISEASE CONSULTATION: REASON FOR CONSULTATION: Evaluate sepsis. HISTORY OF PRESENT ILLNESS: The patient was a 73-year-old transferred from [facility] with respiratory compromise, mucus plugging and shortness of breath. She has a history of a tracheostomy following stroke. He was hospitalized on 03/20/2018 with gram-negative bacteremia. During that hospitalization, she had a left nephrostomy tube placed due to UPJ obstruction. She had Klebsiella identified from her urine. The gram negative from the blood did not grow to identification. She had surgical debridement of a sacral decubitus by Dr. Bruno Castelan. Also, had a diverting loop colostomy placed. During that hospital stay, she had issues with clearance of her secretions. She had aspiration pneumonia. Imaging studies also identified cholelithiasis without ductal obstruction. She was diagnosed with C. difficile positive diarrhea. Treated with IV antibiotic therapy, then discharged on Bactrim, vancomycin, metronidazole. Unclear when she finished this treatment program. Has not had issues with fever, chills or sweats. Unclear if she did follow up with Urology regarding her left nephrostomy tube. Once presented to the Emergency Room, hemodynamically she remained stable. She had temperature up to 99 degrees. Cultures were obtained and she was placed on broad antibiotic coverage including vancomycin, Levaquin, Zosyn in addition to enteral vancomycin and metronidazole. In the last 24 hours, she has stabilized. Her oxygen requirements are at her baseline. Chest x-ray showed improvement in her left lower lobe infiltrate. She had a leukocytosis of 23,000. The patient was aphasic and unable to give any details of her history. She is also unable to assist in her evaluation today. REVIEW OF SYSTEMS: Ten-point review unable to be completed due to her communication issues. History was gleaned from the chart as well as discussion with nursing in attendance. ALLERGIES: None. MEDICATIONS: As noted on her MAR including drugs noted above. PAST MEDICAL HISTORY: Hypertension, stroke, aphasic, anxiety, depression, dysphagia with a PEG tube, tracheostomy for respiratory failure, chronic [address] [address] CONSULTATION Name: JOE TITUS Room #: 361-P [facility] IN .R.#: [id number] Admission: 04/24/18 Attend Phys: Eunice Lane Discharge: Date of : 43 Report #: [id number] indwelling Limon catheter, now with left nephrostomy tube, C. difficile colitis and sacral decubitus. FAMILY HISTORY: Noncontributory. SOCIAL HISTORY: Nonsmoker, no significant alcohol intake. snf resident. PHYSICAL EXAMINATION: GENERAL: Lying in bed with head elevated about 30 degrees. She was alert, not conversant. Did not appear to be in any distress, looked apparent age. VITAL SIGNS: Stable, afebrile, blood pressure 93/57, heart rate 89. HEENT: Eyes without conjunctivitis or scleral icterus. Mouth without mucositis. NECK: Tracheostomy was midline without significant paratracheal drainage or erythema. LUNGS: Few crackles in the bases bilaterally. No consolidation. HEART: Regular, without murmur, gallop or rub. ABDOMEN: Soft, nontender. PEG site was unremarkable, diverting colostomy site unremarkable. No mass or hepatosplenomegaly. BACK: Spine was nontender. Left nephrostomy tube in place. GENITOURINARY: External genitalia unremarkable with no lesions or ulcerations. EXTREMITIES: Sacral wound had a clean bed. No surrounding erythema or fluctuance. SKIN: Without other rashes. NEUROLOGIC: Right hemiparesis with generalized increased muscle tone throughout. She had contractures involving her upper extremities. PSYCHIATRIC: Mood was normal. LABORATORY STUDIES: Lactate 2.6, creatinine 0.9. Liver function test normal. Hemoglobin 10.9, platelet count 325,000, WBC 23.5, 89% segs, 1% band. Urinalysis had positive wbc's and bacteria. Chest x-ray, left lower lobe infiltrate, improved from previous. Does have some chronic interstitial changes. Procalcitonin level 0.39. IMPRESSION: A 73-year-old prison resident with respiratory compromise. I am suspecting mucus plugging initially cause of her presentation. Would still be concerned about urinary tract infection complicating matters here. She has C. difficile positive diarrhea with diverting colostomy. Large sacral decubitus which does not appear to be actively infected at this point. Leukocytosis is driven by the above issues. RECOMMENDATION: We will continue broad antibiotic coverage with vancomycin and Zosyn in addition to enteral vancomycin. We will repeat her CBC, chest x-ray and image her left collecting system to ensure adequate placement of the nephrostomy. I suspect so due to good urine output from the catheter. We will [facility] [address] [place] [address] CONSULTATION Name: JOE TITUS Room #: 361-P [facility] IN M.R.#: [id number] Admission: 04/24/18 Attend Phys: Eunice Lane Discharge: Date of : 41 Report #: [id number] ultimately need Urology evaluation to further assist in her care. Continue with pressure relief and wound care. Await final cultures before adjusting her antibiotics. <ELECTRONICALLY SIGNED> By: Eric Cabrales MD 04/26/18 1342 [id number] Eric Cabrales MD /nt
--- NOTE | ~2018-04-24 | EKG ---
[address] [employer] [place] [address] ELECTROCARDIOGRAM REPORT Name: JOE TITUS Room #: 361-P [facility] IN M.R.#: [id number] Admission: 04/24/18 Attend Phys: Eunice Lane Discharge: Date of : 41 Report #: [id number] THIS REPORT FOR: //name// [facility] ED Test Date: 2018-04-24 Test Time: 20:42:43 Pat Name: JOE TITUS Department: Room: 361 Gender: F [employer]: SB : 1945 Requested By: Roseanne Flowers Order Number: [id number] MD: Davin Naik Measurements Intervals [place] Rate: 103 P: 82 SD: 99 QRS: 62 QRSD: 89 T: 84 QT: 362 QTc: 474 Interpretive Statements Sinus tachycardia Atrial premature complexes Borderline ST depression, diffuse leads Compared to ECG 03/20/2018 02:50:49 Atrial premature complex(es) now present Ventricular premature complex(es) no longer present Electronically Signed On 04-25-2018 7:36:16 DRY STARCH OPERATOR by Davin Naik [email or web address] <ELECTRONICALLY SIGNED> By: Davin Naik MD, [facility] 04/25/18 0736 41 41 Davin Naik MD, [facility] /EPI
[~2018-04-24 20:29] MED LIST: ATIVAN0.5 MG; ATROVENT HFA14 GM; BACTRIM DS TAB1 EACH PO; DIOCTO50 MG/5 ML; FIRVANQ50 MG/1 ML PER TUBE; FLAGYL500 MG PO; FLONASE 0.05%50 MCG; FUROSEMIDE20 MG/2 ML PO; GLUCERNA237 M1; HYDROCHLOROTHIA25 M2; HYDROCODONE-ACE15 ML PER TUBE; HYOSCYAMINE0.125 M1; LEXAPRO20 MG; LOPRESSOR50; PEPCID20 MG; RISAMINE OINTM113 GM
[2018-04-24] MEDS ORDERED: LASIX 40 MG TAB40 M2 PER TUBE ×2 (20:40)
[2018-04-24] MEDS ORDERED: SANTYL OINTMENT30 G1 TOP (20:44)
[2018-04-24 21:13] LABS: HEMATOCRIT 34.6 % (37.0-47.0); HEMOGLOBIN 10.9 gm/dL (12.0-15.0); MCH 26.6 pg (26.0-34.0); MCHC 31.5 g/dL (28.0-37.0); MCV 84.5 fL (80.0-100.0); PLATELET COUNT 325 thou/uL (150-400); RDW 19.4 % (10.5-14.5); WBC 23.5 thou/uL (4.0-11.0)
[2018-04-24 21:17] LABS: ANION GAP 11 mmol/L (7-16); BUN 58 mg/dL (7-18); CALCIUM 10.1 mg/dL (8.5-10.1); CHLORIDE 109 mmol/L (98-107); CO2 28 mmol/L (21-32); CREATININE 0.9 mg/dL (0.6-1.0); GLUCOSE 324 mg/dL (74-106); POTASSIUM 3.8 mmol/L (3.5-5.1); SODIUM 148 mmol/L (136-145)
[2018-04-24 21:25] LABS: ALBUMIN 2.5 g/dL (3.4-5.0); DIRECT BILIRUBIN < 0.1 mg/dL (<0.1-0.3); SGOT 13 U/L (15-37); SGPT 16 U/L (30-65); TOTAL BILIRUBIN 0.4 mg/dL (<0.1-1.0); TOTAL PROTEIN 8.6 g/dL (6.4-8.2); TROPONIN-I 0.16 ng/mL (<0.06)
[2018-04-24 21:34] LABS: ABSOLUTE NEUTROPHILS 21.2 thou/uL (1.4-8.2)
[2018-04-24 21:37] LABS: ANISOCYTOSIS 2+
[2018-04-24 21:38] LABS: LARGE PLATELETS OCCASIONAL; POLYCHROMASIA OCCASIONAL
[2018-04-24] MEDS ORDERED: ACETAMINOP160 MG/51 PER TUBE ×2 (21:47)
[2018-04-24] MEDS ORDERED: LORAZEPAM 22 MG/1 ML PER TUBE ×2 (21:48)
[2018-04-24] MEDS ORDERED: FLONASE 0.05%50 MCG NASAL ×2 (21:49)
[2018-04-24] MEDS ORDERED: HYDROCHLOROTHIA25 M2 PER TUBE ×2 (21:50)
[2018-04-24 22:23] LABS: URINE BILIRUBIN NEGATIVE (Negative); URINE BLOOD 2+ (Negative); URINE CLARITY CLOUDY; URINE COLOR YELLOW; URINE GLUCOSE-RANDOM* NEGATIVE (Negative); URINE KETONES NEGATIVE (Negative); URINE NITRITE-REFLEX NEGATIVE (Negative); URINE PROTEIN (DIPSTICK) 3+ (Negative); URINE SPECIFIC GRAVITY <= 1.005 (1.005-1.035); URINE UROBILINOGEN 0.2 E.U./dl (0.2-1.0)
[2018-04-24 22:26] LABS: URINE LEUKOCYTES-REFLEX 3+ (Negative)
[2018-04-24 22:35] LABS: CASTS None Seen /LPF (None Seen); SQUAMOUS 0-3 Few /LPF (0-3); TRIPLE PHOSPHATE CRYSTALS 4-10 Moderate /LPF (None Seen); URINE WBC-REFLEX >25 Many /HPF (0-5)
[2018-04-24 22:36] LABS: BACTERIA-REFLEX >30 Many /HPF (None Seen)
[2018-04-24 23:45] VITALS: BP 123/54
[2018-04-24 23:54] VITALS: BP 133/52
[2018-04-25 00:56] VITALS: BP 140/98
[2018-04-25 04:03] VITALS: BP 110/48
[2018-04-25 08:35] VITALS: BP 90/50
[2018-04-25 12:15] VITALS: BP 132/64
[2018-04-25 15:27] VITALS: BP 93/54
[2018-04-25 20:05] LABS: GLYCOHEMOGLOBIN (HGB A1C) 6.9 % (4.8-5.6)
[2018-04-25 20:20] VITALS: BP 112/66
[2018-04-26 05:15] VITALS: BP 102/53
[2018-04-26 05:57] LABS: HEMATOCRIT 27.3 % (37.0-47.0); MCH 26.5 pg (26.0-34.0); MCHC 30.9 g/dL (28.0-37.0); MCV 85.8 fL (80.0-100.0); RBC 3.18 mil/uL (4.20-5.00); RDW 18.9 % (10.5-14.5); WBC 17.5 thou/uL (4.0-11.0)
[2018-04-26 06:06] LABS: HEMOGLOBIN 8.5 gm/dL (12.0-15.0)
[2018-04-26 07:23] VITALS: BP 100/54
[2018-04-26 09:34] LABS: CREATININE 0.9 mg/dL (0.6-1.0); MAGNESIUM 2.1 mg/dL (1.8-2.4); POTASSIUM 3.3 mmol/L (3.5-5.1)
[2018-04-26 12:19] VITALS: BP 106/60
[2018-04-26 16:10] VITALS: BP 96/46
[2018-04-26 20:30] VITALS: BP 102/50
[2018-04-27 00:17] VITALS: BP 114/52
[2018-04-27 04:53] VITALS: BP 119/58
[2018-04-27 06:27] LABS: HEMATOCRIT 28.9 % (37.0-47.0); HEMOGLOBIN 8.9 gm/dL (12.0-15.0); MCH 26.8 pg (26.0-34.0); MCHC 30.9 g/dL (28.0-37.0); MCV 86.9 fL (80.0-100.0); RBC 3.33 mil/uL (4.20-5.00); RDW 19.9 % (10.5-14.5); WBC 15.5 thou/uL (4.0-11.0)
[2018-04-27 06:42] LABS: CALCIUM 8.9 mg/dL (8.5-10.1); CREATININE 0.8 mg/dL (0.6-1.0); MAGNESIUM 2.6 mg/dL (1.8-2.4); POTASSIUM 4.1 mmol/L (3.5-5.1); TOTAL BILIRUBIN 0.3 mg/dL (<0.1-1.0); TOTAL PROTEIN 6.8 g/dL (6.4-8.2)
[2018-04-27 08:32] VITALS: BP 126/84
[2018-04-27 12:11] VITALS: BP 132/61
[2018-04-27 18:21] VITALS: BP 149/64
[2018-04-27 19:05] VITALS: BP 128/70
[2018-04-28 05:36] LABS: HEMOGLOBIN 7.1 gm/dL (12.0-15.0); MCV 86.9 fL (80.0-100.0); RBC 2.64 mil/uL (4.20-5.00); RDW 19.1 % (10.5-14.5); WBC 13.1 thou/uL (4.0-11.0)
[2018-04-28 05:50] LABS: ALBUMIN 1.5 g/dL (3.4-5.0); CALCIUM 7.4 mg/dL (8.5-10.1); CREATININE 0.7 mg/dL (0.6-1.0); PHOSPHORUS 2.5 mg/dL (2.5-4.9); POTASSIUM 3.4 mmol/L (3.5-5.1)
[2018-04-28 06:05] VITALS: BP 142/57
[2018-04-28 07:30] VITALS: BP 118/47
[2018-04-28 07:30] LABS: ALBUMIN 1.7 g/dL (3.4-5.0); CALCIUM 7.9 mg/dL (8.5-10.1); CREATININE 0.7 mg/dL (0.6-1.0); PHOSPHORUS 2.8 mg/dL (2.5-4.9); POTASSIUM 3.8 mmol/L (3.5-5.1)
[2018-04-28] MEDS ORDERED: ZOSYN 3.3753.375 GM IV ×2 (08:39)
[2018-04-28 12:01] VITALS: BP 118/49
[2018-04-28 12:02] VITALS: BP 133/61; BP 155/66
[2018-04-28 16:04] LABS: HEMOGLOBIN 10.1 gm/dL (12.0-15.0)
[2018-04-28 16:09] VITALS: BP 128/51
== END 2018-04-28 18:25 | DRG 871 ==
LOC: ER 20:29 → 3W 23:08 → EROBS 23:08 → 3W 04-25 00:27
PROVIDERS: Emergency Medicine; Hospitalist; Nurse Practitioner Acute Care
PROC: 30233N1 Transfusion of Nonautologous Red Blood Cells into Peripheral Vein, Percutaneous Approach (ICD-10-PCS; principal; 2018-04-28)
DX: A41.9 Sepsis, unspecified organism (principal); L89.154 Pressure ulcer of sacral region, stage 4; J96.21 Acute and chronic respiratory failure with hypoxia; N39.0 Urinary tract infection, site not specified; E44.0 Moderate protein-calorie malnutrition; N13.30 Unspecified hydronephrosis; M86.8X8 Other osteomyelitis, other site; I47.2 Ventricular tachycardia; E87.0 Hyperosmolality and hypernatremia; I10 Essential (primary) hypertension; F41.9 Anxiety disorder, unspecified; B96.89 Other specified bacterial agents as the cause of diseases classified elsewhere; F32.9 Major depressive disorder, single episode, unspecified; D64.9 Anemia, unspecified; E86.0 Dehydration; E11.69 Type 2 diabetes mellitus with other specified complication; B96.4 Proteus (mirabilis) (morganii) as the cause of diseases classified elsewhere; Z68.23 Body mass index [BMI] 23.0-23.9, adult; Z93.0 Tracheostomy status; Z93.1 Gastrostomy status; Z86.73 Personal history of transient ischemic attack (TIA), and cerebral infarction without residual deficits; Z93.3 Colostomy status; Z28.89 Immunization not carried out for other reason
CPT/HCPCS: 10879

== ENCOUNTER 2018-05-03 10:09 | Emergency (ER) | payer OTHER ==
[~2018-05-03] VITALS: Ht 162.6 cm; Wt 72.6 kg
[~2018-05-03 10:09] MED LIST changes: +ACETAMINOP160 MG/51 PER TUBE; +FLONASE 0.05%50 MCG NASAL; +HYDROCHLOROTHIA25 M2 PER TUBE; +LASIX 40 MG TAB40 M2 PER TUBE; +LORAZEPAM 22 MG/1 ML PER TUBE; +SANTYL OINTMENT30 G1 TOP; +ZOSYN 3.3753.375 GM IV
== END 2018-05-03 10:15 ==
LOC: ER 10:09
DX: I46.9 Cardiac arrest, cause unspecified (principal); I10 Essential (primary) hypertension; G82.20 Paraplegia, unspecified; E11.9 Type 2 diabetes mellitus without complications